=== PATIENT | male | born 1980 ===

== ENCOUNTER 2019-10-04 09:55 | Emergency (ER) | payer OTHER ==
--- NOTE | 2019-10-04 10:34 | ED ---
Shortness of Breath - HPI Summary HPI Summary: 39 year old M presenting to [facility] via private car with a chief complaint of SOB since Tuesday10/02/2019. Patient states that he has not been able to take a deep breath since then. He denies fever, chills, sore throat, chest pain, vomiting, and diarrhea. Patients SpO2 was 92% this morning. Patient came to the [facility] because his dad, who is an ED doctor, told him to get checked out. Patient has a PMHx of HTN, obesity and a PSHx of hernia surgery. Patient denies smoking and drug use and states he drinks alcohol once a year. Home Medications Medication Instructions Recorded Confirmed Type Benazepril HCl 40 mg PO DAILY 10/04/19 10/04/19 History amLODIPine TAB* [Norvasc 5 mg TAB*] 10 mg PO DAILY 10/04/19 10/04/19 History - History of Current Complaint Time Seen by Provider: 10/04/19 09:57 Hx Obtained From: Patient Onset/Duration: Lasting Days - Started 2 days ago on 10/02/2019. Aggravating Factors: Deep Breaths - Patient not able to take deep breaths. Associated Signs & Symptoms: Negative - Allergy/Home Medications Allergies/Adverse Reactions: Allergies Allergy/AdvReac Type Severity Reaction Status Date / Time [email or web address] Allergy Anaphylatic Uncoded 10/04/19 11:00 Shock Home Medications: Home Medications Benazepril HCl 40 mg PO DAILY 10/04/19 [History Confirmed 10/04/19] amLODIPine TAB* [Norvasc 5 mg TAB*] 10 mg PO DAILY 10/04/19 [History Confirmed 10/04/19] PMH/Surg Hx/FS Hx/Imm Hx Endocrine/Hematology History: Reports: Other Endocrine/Hematological Disorders - Obesity. Cardiovascular History: Reports: Hx Hypertension Infectious Disease History: Denies: Traveled Outside the [place] in Last 30 Days - Family History Known Family History: Negative: Cardiac Disease, Hypertension, Diabetes - Social History Alcohol Use: Rare - Once a year. Hx Substance Use: No Hx Tobacco Use: No Review of Systems Negative: Fever, Chills Negative: Sore Throat Negative: Chest Pain Positive: Shortness Of Breath Negative: Vomiting, Diarrhea All Other Systems Reviewed And Are Negative: Yes Physical Exam - Summary Physical Exam Summary: Constitutional: Well-developed, Well-nourished, Alert. (-) Distressed Skin: Warm, Dry HENT: Normocephalic; Atraumatic Eyes: Conjunctiva normal Neck: Musculoskeletal ROM normal neck. (-) JVD, (-) Stridor, (-) Tracheal deviation Cardio: Rhythm regular, rate 95-105 BPM on monitor, Heart sounds normal; Intact distal pulses; Radial pulses are 2+ and symmetric. (-) Murmur Pulmonary/Chest wall: Effort normal. (-) Respiratory distress, (-) Wheezes, (-) Rales. 96-97% on room air. Abd: Soft, (-) tenderness, (-) Distension, (-) Guarding, (-) Rebound Musculoskeletal: (-) Edema Lymph: (-) Cervical adenopathy Neuro: Alert, Oriented x3 Psych: Mood and affect Normal Triage Information Reviewed: Yes Vital Signs Reviewed: Yes Procedures - Sedation Patient Received Moderate/Deep Sedation with Procedure: No Diagnostics - Laboratory Result Diagrams: 10/04/19 10:50 10/04/19 10:50 Lab Statement: Any lab studies that have been ordered have been reviewed, and results considered in the medical decision making process. - Radiology CXR Radiology Interpretation Completed By: ED Physician Summary of Radiographic Findings: IMPRESSION: CARDIOMEGALY WITHOUT EVIDENCE OF ACTIVE CARDIOPULMONARY DISEASE. This imaging has been reviewed by Dr. Palma. - EKG 1042 Cardiac Rate: NL EKG Rhythm: Sinus Rhythm Summary of EKG Findings: Patient has sinus rhythm and T wave flattening of v5 and v6. This EKG has been reviewed and interpreted by Dr. Palma. Course/Dx - Course Course Of Treatment: Patient is here 2 days of shortness of breath. Patient was [place] hypoxic at home but was not hypoxic here. Patient is overall well- appearing. Given patient's shortness of breath borderline hypoxia at home, patient was tested for PE with a negative d-dimer. Patient had blood work performed which is grossly unremarkable. Patient had negative chest x-ray. Patient was tested for Covid 19. - Diagnoses Provider Diagnoses: Shortness of breath - Critical Care Time Critical Care Statement: Critical care time is provided exclusive of any time spent performing procedures. Discharge ED - Sign-Out/Discharge Documenting (check all that apply): Patient Departure - Discharge Plan Condition: Stable Disposition: HOME Patient Education Materials: Shortness of Breath (ED) Forms: COVID-19 Tested & Isolation Referrals: [facility] [Outside] Additional Instructions: PLEASE RETURN TO ED FOR SEVERE SHORTNESS OF BREATH OR ANY OTHER CONCERNING SYMPTOMS. FOLLOW ISOLATION PRECAUTIONS. FOLLOW UP WITH YOUR PRIMARY CARE PHYSICIAN WITHIN THREE DAYS. - Billing Disposition and Condition Condition: STABLE Disposition: Home - Attestation Statements Document Initiated by Scribe: Yes Documenting Scribe: Kerri Blanchard Provider For Whom Scribe is Documenting (Include Credential): Codey Palma MD Scribe Attestation: Kerri Pruett, scribed for Codey Palma MD on 10/04/19 at 1629. Scribe Documentation Reviewed: Yes Provider Attestation: The documentation as recorded by the jamarcus, Kerri Blanchard accurately reflects the service I personally performed and the decisions made by , Codey Palma MD Status of Scribe Document: Viewed
[2019-10-04 11:01] LABS: ABS Eosinophils 0.1 10^3/ul (0-0.6); ABS Lymphocytes 2.2 10^3/ul (1.0-4.8); ABS Monocytes 0.6 10^3/ul (0-0.8); ABS Neutrophils 7.5 10^3/ul (1.5-7.7); Eosinophil % 1.3 %; Hematocrit 40 % (42-52); Hemoglobin 13.4 g/dL (14.0-18.0); Lymphocyte % 20.8 %; Mean Corpuscular HGB Conc 34 g/dL (31-36); Mean Corpuscular Hemoglobin 27 pg (27-31); Mean Corpuscular Volume 79 fL (80-94); Mean Platelet Volume 7.7 fL (7.4-10.4); Platelet Count 217 10^3/uL (150-450); Red Blood Count 4.98 10^6 /uL (4.18-5.48); Red Cell Distribution Width 17 % (10-15); White Blood Count 10.4 10^3/uL (3.5-10.8)
[2019-10-04 11:17] LABS: Albumin 4.2 g/dL (3.2-5.2); Albumin/Globulin Ratio 1.4 (1-3); BUN/Creatinine Ratio 13.2 (8-20); Calcium 9.1 mg/dL (8.6-10.3); EGFR African American 113.4 (>60); EGFR Non-African American 93.7 (>60); Potassium 3.6 mmol/L (3.5-5.0); Total Bilirubin 0.5 mg/dL (0.2-1.0); Total Protein 7.2 g/dL (6.4-8.9)
[2019-10-04 11:20] LABS: Troponin I 0.02 ng/mL (<0.03)
[2019-10-04 11:59] VITALS: BP 174/124
== END 2019-10-04 11:58 | disposition home or self-care (01) ==
LOC: ED 09:55
DX: R06.02 Shortness of breath (principal); I10 Essential (primary) hypertension; E66.9 Obesity, unspecified; Z79.899 Other long term (current) drug therapy; Z20.828 Contact with and (suspected) exposure to other viral communicable diseases
CPT/HCPCS: 36415; 71045; 80053; 84484; 85025; 85379; 87635; 93005; 99282